=== PATIENT | female | born 1960 | race Caucasian/White ===

== ENCOUNTER 2016-02-15 23:52 | Emergency (ER) | payer OTHER ==
[2016-02-16] MEDS ORDERED: ONDANSETRON 4 MG/2 ML VIAL IVP STA (00:30)
[2016-02-16] MEDS ORDERED: SODIUM CHLORIDE 0.9% 1,000 ML IV ONE (00:30)
[2016-02-16] MEDS ORDERED: ONDANSETRON 4 MG/2 ML VIAL ONE (00:33)
== END 2016-02-16 02:01 | disposition home or self-care (01) ==
DX: R55 Syncope and collapse (principal)